=== PATIENT | male | born 1975 | race Caucasian/White ===

== ENCOUNTER 2024-12-22 13:44 | Outpatient (CLI) | payer BC, SELFPAY | END 2024-12-22 13:45 | disposition home or self-care (01) | LOC: NFLDREF 12-26 15:26 | PROVIDERS: PCP Nurse Practitioner Family; Visit Provider Nurse Practitioner Family | DX: Z00.00 Encounter for general adult medical examination without abnormal findings (principal); E10.9 Type 1 diabetes mellitus without complications; E78.5 Hyperlipidemia, unspecified; E03.9 Hypothyroidism, unspecified; Z12.5 Encounter for screening for malignant neoplasm of prostate | CPT/HCPCS: 80053; 80061; 82043; 82570; 84443; G0103 ==